=== PATIENT | female | born 1950 | race Caucasian/White ===

== ENCOUNTER → 2016-12-01 | Outpatient (CLI) | payer OTHER | LOC: FIMAGING 14:02 | PROVIDERS: ATTEND Obstetrics & Gynecology | DX: Z13.820 Encounter for screening for osteoporosis (principal) ==

== ENCOUNTER → 2017-04-13 | Outpatient (CLI) | payer OTHER | LOC: FIMAGING 07:52 | PROVIDERS: ATTEND Internal Medicine | DX: Z12.31 Encounter for screening mammogram for malignant neoplasm of breast (principal) | CPT/HCPCS: G0202 ==

== ENCOUNTER 2017-07-20 05:38 | Inpatient (IN) | payer OTHER ==
[2017-07-20] MEDS ORDERED: ACETAMINOPHEN 500 MG TAB PO ONE (06:06)
[2017-07-20] MEDS ORDERED: ceFAZolin 2 GM/SWFI 2 GM/20 ML SYR IVP ONE (06:06)
[2017-07-20] MEDS ORDERED: GABAPENTIN 300 MG CAP PO ONE (06:06)
[2017-07-20] MEDS ORDERED: LR 1,000 ML IV ONE (06:07)
[2017-07-20] MEDS ORDERED: LIDOCAINE 1% 2 ML INJ ID PRN (06:07)
[2017-07-20] MEDS ORDERED: BUPIVACAINE 0.25% 30 ML SDV ONE (06:14)
[2017-07-20] MEDS ORDERED: THROMBIN (BOVINE) 5,000 UNIT VIAL TP ONE (06:14)
[2017-07-20] MEDS ORDERED: BACITRACIN 50,000 UNITS/10 ML SYR IRR ONE ×2 (06:15→09:07)
--- NOTE | 2017-07-20 06:35 | PDHPUP ---
History & Physical Update H&P update statement: This history and physical update is based on an assessment of the patient which was completed after admission or registration (within 24 hours), but prior to the surgery/procedure. H&P update: H&P reviewed & patient examined, no change in patient's condition since H&P completed
[2017-07-20] MEDS ORDERED: MIDAZOLAM 2 MG/2 ML VIAL IVP ONE (06:51)
--- NOTE | 2017-07-20 06:51 | PDANEPAE ---
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 HYPERLIPIDEMIA. INFLAMATORY OSTEOARTHRITIS - Pulmonary History Hx COPD: No Hx Asthma/Reactive Airway Disease: No Hx Recent Upper Respiratory Infection: No Hx Sleep Apnea: Yes Sleep Apnea Screening Result - Last Documented: Positive Pulmonary History Comment: MARTHA, CPAP - Neurologic History Hx Cerebrovascular Accident: No Hx Seizures: No Hx Dementia: No - Endocrine History Hx Diabetes: No Hypothyroid: No Hyperthyroid: No Obesity: no - Renal History Hx Renal Disorders: No Renal History Comment: MILD STRESS INCONTINENCE - Liver History Hx Hepatic Disorders: No - Neurological & Psychiatric Hx Hx Neurological and Psychiatric Disorders: No - Cancer History Hx Cancer: No - Congenital Disorder History Hx Congenital Disorders: No - GI History GERD: no Hx Gastrointestinal Disorders: No Gastrointestinal History Comment: HEMRRHOIDS - Other Health History Other Health History: OSTEOARTHRITIS - Chronic Pain History Chronic Pain: Yes (L KNEE PAIN) - Surgical History Prior Surgeries: 2014 ARTHROSCOPY L KNEE. HEMRRHOIDECTOMY. MENISCECTOMY R KNEE. BILAT BUNIONECTOMY. FACELIFT ANE Review of Systems Review of systems is: negative Review of Systems: - Exercise capacity METS (RN): 4 METS ANE Patient History - Allergies Allergies/Adverse Reactions: No Known Allergies Allergy (Verified 05/19/15 11:30) - Home Medications Home medications: home medication list seen and reviewed Home Medications: FEXOFENADINE HCL 180 mg PO DAILY 05/17/15 [Last Taken 07/17/17] Herbals/Supplements -Info Only 1 each PO DAILY 05/17/15 [Last Taken 07/13/17] Hydrochlorothiazide [HCTZ (*)] 25 mg PO DAILY 05/17/15 [Last Taken 07/17/17] Multivitamins [Multivitamin (*)] 1 tab PO DAILY 05/17/15 [Last Taken 07/13/17] Simvastatin [Zocor] 20 mg PO HS 05/17/15 [Last Taken 07/17/17] Aspirin EC [Aspirin EC 81 mg (*)] 81 mg PO DAILY 07/04/17 [Last Taken 07/13/17] Diclofenac Sodium [Voltaren 75 MG (*)] 75 mg PO BID 07/06/17 [Last Taken ] - NPO status NPO Since - Liquids (Date): 07/19/17 NPO Since - Liquids (Time): 20:00 NPO Since - Solids (Date): 07/19/17 NPO Since - Solids (Time): 20:00 - Anes Hx Anes Hx: no prior problems - Smoking Hx Smoking Status: Former smoker - Family Anes Hx Family Hx Anesthesia Complications: NONE ANE Labs/Vital Signs - Vital Signs Blood Pressure: 137/93 Heart Rate: 80 Respiratory Rate: 18 O2 Sat (%): 95 Height: 165.1 cm Weight: 74.843 kg ANE Physical Exam - Airway Neck exam: FROM Mallampati Score: Class 1 Mouth exam: normal dental/mouth exam - Pulmonary Pulmonary: no respiratory distress - Cardiovascular Cardiovascular: regular rate and rhythym - ASA Status ASA Status: III ANE Anesthesia Plan Anesthesia Plan: general endotracheal anesthesia
[2017-07-20] MEDS ORDERED: REMIFENTANIL HCL 1 MG VIAL ONE ×2 (06:57→09:13)
[2017-07-20] MEDS ORDERED: fentaNYL 100 MCG/2 ML INJ ONE (06:57)
[2017-07-20] MEDS ORDERED: LIDOCAINE 2% 5 ML SDV ONE (06:57)
[2017-07-20] MEDS ORDERED: PROPOFOL/EMULSION 500 MG/50 ML BOTTLE IV ONE (06:57)
[2017-07-20] MEDS ORDERED: ONDANSETRON 4 MG/2 ML VIAL ONE (06:57)
[2017-07-20] MEDS ORDERED: DEXAMETHASONE 4 MG/ML VIAL ONE (06:58)
[2017-07-20] MEDS ORDERED: ROCURONIUM 50 MG/5 ML VIAL ONE (06:58)
[2017-07-20] MEDS ORDERED: PROPOFOL 200 MG/20 ML VIAL ONE ×3 (07:02→09:11)
[2017-07-20] MEDS ORDERED: MIDAZOLAM 2 MG/2 ML VIAL ONE (07:04)
[2017-07-20] MEDS ORDERED: morphINE PCA 30 MG/30 ML PCA IV PRN (07:23)
[2017-07-20] MEDS ORDERED: MAGNESIUM HYDROXIDE 30 ML UDCUP PO PRN (07:23)
[2017-07-20] MEDS ORDERED: NALOXONE HCL 0.4 MG/ML INJ IVP PRN ×3 (07:23→10:03)
[2017-07-20] MEDS ORDERED: ONDANSETRON 4 MG/2 ML VIAL IVP PRN ×2 (07:23→10:03)
[2017-07-20] MEDS ORDERED: ONDANSETRON DISINTEGRATING 4 MG TAB PO PRN (07:23)
[2017-07-20] MEDS ORDERED: POLYETHYLENE GLYCOL 3350 17 GM PKT PO PRN (07:23)
[2017-07-20] MEDS ORDERED: BISACODYL 10 MG SUPP PR PRN (07:23)
[2017-07-20] MEDS ORDERED: LACTULOSE 20 GM/30 ML UDCUP PO PRN (07:23)
[2017-07-20] MEDS ORDERED: HYDROmorphONE/DILAUDID 1 MG/ML INJ IVP PRN ×2 (07:23→10:03)
[2017-07-20] MEDS ORDERED: HYDROCODONE/APAP 5/325 TAB PO PRN ×2 (07:23→10:03)
[2017-07-20] MEDS ORDERED: NS W/ 20 KCl/L 1,000 ML IV SCH (07:30)
[2017-07-20] MEDS ORDERED: HYDROmorphONE/DILAUDID 2 MG/ML INJ ONE (08:06)
[2017-07-20] MEDS ORDERED: HYDROmorphone HCL/NS/PF 0.4 MG/2 ML SYR IVP PRN (08:10)
[2017-07-20] MEDS ORDERED: NON-FORMULARY NEW DRUG (Fexofenadine Hcl [Fexofenadine Hcl] 180 MG) PO SCH (09:00)
[2017-07-20] MEDS ORDERED: epHEDrine SULFATE 10 MG/ML SYR IVP PRN (10:03)
[2017-07-20] MEDS ORDERED: ALBUTEROL 3 ML DEYVIAL IH PRN (10:03)
[2017-07-20] MEDS ORDERED: OXYCODONE/APAP 5/325 TAB PO PRN (10:03)
[2017-07-20] MEDS ORDERED: fentaNYL 100 MCG/2 ML INJ IVP PRN (10:03)
[2017-07-20] MEDS ORDERED: PHENYLEPHRINE HCL 100 MCG/ML SYR IVP PRN (10:03)
[2017-07-20] MEDS ORDERED: PROMETHAZINE HCL 25 MG/ML INJ IVP PRN (10:03)
[2017-07-20] MEDS ORDERED: METOCLOPRAMIDE 10 MG/2 ML VIAL IVP PRN (10:03)
[2017-07-20] MEDS ORDERED: LR 500 ML IV PRN (10:03)
[2017-07-20] MEDS ORDERED: ACETAMINOPHEN 500 MG TAB PO PRN (10:03)
--- NOTE | 2017-07-20 10:36 | POSTANESTH ---
Post Anesthetic Evaluation Cardiovascular Status: Normal, Stable Respiratory Status: Normal, Stable Level of Consciousness/Mental Status: Can Participate in Eval Pain Control: Adequate, Prn Tx Ordered Nausea/Vomiting Control: Adequate, Prn Tx Ordered Complications Possibly Related to Anesthesia: None Noted
--- NOTE | 2017-07-20 10:46 | SOAPPROG ---
SOAP Progress Note Assessment/Plan: Post Op Visit: S: Awake and alert. Pt with expected neck pain O: AFVSS/PERRLA/EOMI no droop CN 2-12 grossly intact +lt touch 5/5 BUE/BLE = CDI neck soft and supple A/P: 66 yo female that is s/p ACDF C3-C5 -orders in place -call with any questions or concerns -take medications as directed -pt fit for a collar already 07/20/17 10:42 Objective: Vital Signs Temp Pulse Resp BP Pulse Ox 36.2 C 80 15 144/92 H 98 07/20/17 10:26 07/20/17 06:51 07/20/17 10:35 07/20/17 10:35 07/20/17 10:35 ICD10 Worksheet Patient Problems: Problems Problem Status Onset Arthrodesis status Acute Cervical stenosis of spine Acute Primary localized osteoarthritis of left knee Acute - ICD10 Problem Qualifiers (1) Cervical stenosis of spine (2) Arthrodesis status
--- NOTE | 2017-07-20 11:03 | GOP ---
[f rep st] OPERATIVE REPORT DATE OF OPERATION: 07/20/2017 SURGEON: Brooke Cordoba MD NEUROSURGEON: Brooke Cordoba MD. ACCESS LEAD: Bhanu Schrader PA-C. PREOPERATIVE DIAGNOSIS: Cervical spondylosis, cervical stenosis, cervical radiculopathy, left upper extremity weakness. POSTOPERATIVE DIAGNOSIS: Cervical spondylosis, cervical stenosis, cervical radiculopathy, left upper extremity weakness. PROCEDURE PERFORMED: Anterior cervical diskectomy with arthrodesis and decompression, C3-4, C4-5 (03 [id number], 48892), placement of kanu allograft structural intervertebral device C3-4, C4-5, same incision bone graft harvest, microscope, fluoroscopy, anterior cervical instrumentation C3, C4, C5 ([id number]). FINDINGS: ESTIMATED BLOOD LOSS: 150 cc. INDICATIONS: The patient is a 66-year-old who had left upper extremity weakness that was persistent and a left cervical radiculopathy, who had an MRI of the cervical spine demonstrating cervical stenos is that was severe at C4-5 and bilateral foraminal stenosis at C3-4, C4-5. There were no significant compressive lesions noted at C5-6, C6-7, C7-T1. She had proximal arm weakness most consistent with an upper cervical root compressive deformity. I suggested a 2-level anterior cervical diskectomy and fusion. The risks of adjacent segment disease, nerve injury, dysphagia, esophageal injury, hoarsene ss, pseudoarthrosis, and the possible need for future spine surgery were discussed. She also underst ood there was a chance that surgery would fail to eliminate her weakness. She wanted to proceed desp ite these risks. She also had a lumbar spondylolisthesis, but had minimal symptoms from this, and we were not going to address this at this time. DESCRIPTION OF PROCEDURE: Patient was taken to the operating room and placed in a supine position. General anesthesia was begun. She was intubated, carefully placed on the operating room table. A mi ddle shoulder roll was placed. The head and neck were put in the neutral position with the occiput e xtended. She was sterilely prepped and draped in the usual fashion. We made a transverse incision o n the right side of the neck after infiltrating the skin and subcutaneous tissue with 0.25% Marcaine with epinephrine. The subcutaneous tissue was dissected using Bovie cautery through platysma, and we used a combination of sharp and blunt dissection to work our way medial to the sternocleidomastoid a nd lateral to the strap muscles down to the prevertebral space. The dissection was straightforward. No nerves or vessels were divided in this process. A localizing x-ray was taken. We then dissected the longus coli muscles off the spine at C3-4, C4-5, and removed the ventral osteop hytes at C3-4, 4-5. We then placed distraction pins at C4-5 and under the operating microscope, we i ncised the C4-5 disk. We removed the disk and the cartilaginous endplates. We drilled and harvested a large amount of subchondral bone for autologous grafting purposes. We then opened the posterior a nd longitudinal ligament, decompressed the thecal sac and the neural foramina bilaterally, and decomp ressed both C5 nerve roots at this level. There was some epidural bleeding, but it was not very geovanny re. It was easily controlled with a small piece of Gelfoam. We chose a 6 x 14 x 14 cortical block m anufactured by the [employer], and we shaved off the posterior margin of this block to ensure that it fit in the disk space and then enlarged the central hole so the bony autograft could be place d in this. We normally would use a very large hollow piece of PEEK, but the insurance company reject ed this as experimental and we were not allowed to do the surgery in our typical fashion. We therefo re modified the bony allograft to allow us to use bony autograft inside the allograft, and we did thi s at both levels. We inserted our implant at C4-5, moved the distraction pin to C3-4, distracted at this level and did likewise. We incised the C3-4 disk, removed the cartilaginous endplates, drilled and harvested subch ondral bone for autologous grafting purposes. We opened the posterior and longitudinal ligament, dec ompressed the thecal sac and the neural foramina bilaterally at C3-4. Our decompression at C3-4 was slightly less wide than at C4-5, but we were able to see the exiting C4 nerve roots. There was a lot of epidural venous bleeding from the left-sided neural foramen at C3-4 as we decompressed it and thi s accounted for most of the blood loss during the surgery, but it was easily controlled with a small piece of Gelfoam. We then chose another 6 x 14 x 14 mm cortical block, treated it the same way as we had done at C4-5, placed bone autograft into it, inserted at C4-5, and removed our distraction pins. We then prepared the ventral surface of the vertebral body for acceptance of the plate and chose a 37 mm plate, and a single screw was placed at C3, a single screw at C5. We checked an x-ray to confirm the position of the implants and the plate itself. We then replaced the remaining 4 screws for a to isabella of 6 screws, and they were all locked according to company specification. This was verified with the staff in the room. We then irrigated with antibiotic saline solution, achieved meticulous hemos tasis, and checked a final x-ray. We then placed some 0.25% Marcaine with epinephrine into the preve rtebral space and then closed the platysma with interrupted Vicryl sutures. The skin was closed with interrupted Vicryl sutures. Steri-Strips were applied. The patient was reversed from anesthesia, e xtubated, and transferred to recovery room in stable condition. There were no complications. COMPLICATIONS: None. INSTRUMENTATION USED: [employer] Zevo 37 mm plate with a 6 x 14 x 14 cortical block at both levels. /[id number]/MODL
[2017-07-20] MEDS: HYDROCHLOROTHIAZIDE 25 MG TAB PO SCH (11:39)
[2017-07-20] MEDS: FAMOTIDINE 20 MG TAB PO SCH ×2 (11:39→20:55)
[2017-07-20] MEDS: CETIRIZINE 10 MG TAB PO SCH (11:39)
[2017-07-20] MEDS: SENNOSIDES/DOCUSATE SODIUM TAB PO SCH ×2 (11:40→20:56)
[2017-07-20] MEDS: GABAPENTIN 300 MG CAP PO SCH ×2 (13:05→20:54)
[2017-07-20] MEDS: ACETAMINOPHEN 500 MG TAB PO SCH ×2 (13:05→20:55)
[2017-07-20] MEDS: ceFAZolin 2 GM/DEXTROSE 100 ML IV SCH ×2 (15:38→21:05)
[2017-07-20] MEDS: oxyCODONE IR 5 MG TAB PO PRN (20:53)
[2017-07-20] MEDS: ATORVASTATIN CALCIUM 10 MG TAB PO SCH (20:56)
[2017-07-20] MEDS ORDERED: NON-FORMULARY NEW DRUG (Simvastatin [Zocor] 20 MG) PO SCH (21:00)
[2017-07-21] MEDS: oxyCODONE IR 5 MG TAB PO PRN ×5 (04:31→19:30)
[2017-07-21] MEDS: GABAPENTIN 300 MG CAP PO SCH ×3 (05:45→21:24)
[2017-07-21] MEDS: ACETAMINOPHEN 500 MG TAB PO SCH ×3 (05:46→21:24)
--- NOTE | 2017-07-21 07:40 | NEUSURGPN ---
Date of Surgery: 07/20/17 Post Op Day: 1 Assessment/Plan: Assessment: 66 yo female that is s/p ACDF C3-C5 POD #1 Plan: -s/p ACDF C3-5-pt with expected neck pain, excellent strength to BUE -pt with some pain control issues-will work on this today -PT/OT/ST ordered -pt with neck pain, arms feel fine -collar at all times -orders in place -call with any questions or concerns -take medications as directed -pt seen by Dr Cordoba 07/20/17 10:42 Subjective: Awake and alert. NAD. Eating/drinking and voiding. No f/c/n/v/d. No haines/cp/ sob/abd or gu complaints. Objective: AFVSS/PERRLA/EOMI no droop CN 2-12 grossly intact +lt touch 5/5 BUE/BLE = CDI neck soft and supple Neuro Check Frequency: per routine Urinary Catheter in Place: No - Physician Discussed Patient with DrDarling: Adalid Patient Seen by : Adalid Neurosurgery Physical Exam - Vitals, I&O, Labs I and O 07/20/17 07/21/17 07/22/17 05:59 05:59 05:59 Intake Total 1710 Output Total 500 Balance 1210 Weight 74.843 kg Intake: Oral (ml) 1710 Output: Urine (ml) 500 Toilet 500 Other: Intake Quantity Yes Sufficient Number of Voids Toilet 1 Vital Signs Temp Pulse Resp BP Pulse Ox 37.1 C 74 17 120/78 96 07/21/17 04:00 07/21/17 04:00 07/21/17 04:00 07/21/17 04:00 07/21/17 04:00 ICD10 Worksheet Patient Problems: Problems Problem Status Onset Arthrodesis status Acute Cervical stenosis of spine Acute Primary localized osteoarthritis of left knee Acute - ICD10 Problem Qualifiers (1) Cervical stenosis of spine (2) Arthrodesis status
[2017-07-21] MEDS: FAMOTIDINE 20 MG TAB PO SCH ×2 (09:26→21:24)
[2017-07-21] MEDS: HYDROCHLOROTHIAZIDE 25 MG TAB PO SCH (09:27)
[2017-07-21] MEDS: SENNOSIDES/DOCUSATE SODIUM TAB PO SCH ×2 (09:28→21:24)
[2017-07-21] MEDS: CETIRIZINE 10 MG TAB PO SCH (09:29)
--- NOTE | 2017-07-21 10:00 | ASMTCMCOM ---
CM Note CM Note Notes: Chart reviewed. Pt is POD #1, s/p ACDF C3-5. She lives at home w/. PT/OT/SP recommendations pending. CM w/f to see if there will be dc needs. Date Signed: 07/21/2017 09:59 AM Electronically Signed By:Hortencia Wynne RN
[2017-07-21] MEDS: ATORVASTATIN CALCIUM 10 MG TAB PO SCH (21:24)
[2017-07-21] MEDS: METHOCARBAMOL 750 MG TAB PO PRN (21:40)
[2017-07-22] MEDS: oxyCODONE IR 5 MG TAB PO PRN ×4 (00:55→12:02)
[2017-07-22] MEDS: METHOCARBAMOL 750 MG TAB PO PRN (04:39)
[2017-07-22] MEDS: ACETAMINOPHEN 500 MG TAB PO SCH (05:51)
[2017-07-22] MEDS: GABAPENTIN 300 MG CAP PO SCH (05:52)
--- NOTE | 2017-07-22 07:41 | SOAPPROG ---
SOAP Progress Note Assessment/Plan: Assessment: 66 yo female POD #1 sp C3-5 ACDF improved left deltoid strength after surgery swallowing wel Plan: PT/OT/ST today DC home today with hard collar use during day and soft collar to use at night while on CPAP 07/22/17 07:38 Subjective: awake, alert, feeling good. Very happy that her left arm strength has improved swallowing "fine" Denies new numbness, tingling or weakness Objective: Vital Signs Temp Pulse Resp BP Pulse Ox 36.7 C 77 18 117/78 97 07/22/17 04:00 07/22/17 04:00 07/22/17 04:00 07/22/17 04:00 07/22/17 04:00 07/21/17 07/22/17 07/23/17 05:59 05:59 05:59 Intake Total 1710 700 Output Total 500 450 Balance 1210 250 Neuro: BAHENA, sens +LT 5/5 left Deltoid and throughout all ext Incision: dressing is CDI No AI Post op xrays show stable hardware/grafts ICD10 Worksheet Patient Problems: Problems Problem Status Onset Arthrodesis status Acute Cervical stenosis of spine Acute Primary localized osteoarthritis of left knee Acute
[2017-07-22 07:50] VITALS: BP 104/65; PULSE 78; RESP 15; TEMP 98.9; O2SAT 96
[2017-07-22] MEDS: CETIRIZINE 10 MG TAB PO SCH (08:49)
[2017-07-22] MEDS: SENNOSIDES/DOCUSATE SODIUM TAB PO SCH (08:49)
[2017-07-22] MEDS: FAMOTIDINE 20 MG TAB PO SCH (08:50)
[2017-07-22] MEDS: HYDROCHLOROTHIAZIDE 25 MG TAB PO SCH (10:26)
--- NOTE | 2017-07-22 10:40 | ASMTCMCOM ---
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 Pt medically stable for d/c. No CM d/c needs identified. Date Signed: 07/22/2017 10:40 AM Electronically Signed By:GIANLUCA Corona
--- NOTE | 2017-07-22 14:50 | ASDISCHSUM ---
Discharge Information Plan Status:Home with No Needs Medically Cleared to Leave: Discharge Date:07/22/2017 12:06 PM CM D/C Disposition:Home, Routine, Self-Care ADT D/C Disposition:Home, Routine, Self-Care Projected Discharge Date:07/22/2017 12:06 PM Transportation at D/C: Discharge Delay Reason: Follow-Up Date:07/22/2017 12:06 PM Discharge Slot: Final Diagnosis: Placement Information Patient Contact Information Contact Name:LETHA Relationship: Address:[address] City:[place] Alternate Phone: [facility]/Zip Code:[place] [address] Email: Financial Information Financial Class:HMO and PPO Plans Primary Plan Desc:[employer] PPO POS Primary Plan Number:[id number] Secondary Plan Desc: Secondary Plan Number: Assessment Information [facility] CM Progress Note CM Note CM Note Notes: Chart reviewed. Pt is POD #1, s/p ACDF C3-5. She lives at home w/. PT/OT/SP recommendations pending. CM w/f to see if there will be dc needs. 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 Pt medically stable for d/c. No CM d/c needs identified. Date Signed: 07/22/2017 10:40 AM Electronically Signed By:GIANLUCA Corona Intervention Information Intervention Type:*Incorrect Registration Date of Service:07/20/2017 04:42 PM Patient Type:Observation Staff Member:NANO Lockett, Ann Hours: Discipline: Severity: Comment:
[2017-07-23] MEDS ORDERED: ENOXAPARIN 40 MG/0.4 ML SYR SC SCH (09:00)
== END 2017-07-22 12:06 | disposition home or self-care (01) | DRG 473 ==
LOC: F3N 05:38 → OBSVTOIN 05:38 → EDSTATUS 07:30 → F3N 11:16
PROVIDERS: ADMIT Neurological Surgery; ATTEND Neurological Surgery
DX: M47.22 Other spondylosis with radiculopathy, cervical region (principal); M48.02 Spinal stenosis, cervical region; M43.12 Spondylolisthesis, cervical region; I10 Essential (primary) hypertension; E78.5 Hyperlipidemia, unspecified; G47.33 Obstructive sleep apnea (adult) (pediatric); Z87.891 Personal history of nicotine dependence; Z96.652 Presence of left artificial knee joint
CPT/HCPCS: 92526-GN; 92610-GN; 97161-GP; 97165-GO; 97535-GO; C1713; J0171; J0690; J1100; J1170; J2250; J2370; J2405; J2704; J3010

== ENCOUNTER → 2017-09-09 | Outpatient (CLI) | payer OTHER | LOC: FIMAGING 09:06 | PROVIDERS: ATTEND Physician Assistant | DX: Z09 Encounter for follow-up examination after completed treatment for conditions other than malignant neoplasm (principal); Z98.1 Arthrodesis status; M50.323 Other cervical disc degeneration at C6-C7 level; M43.12 Spondylolisthesis, cervical region ==

== ENCOUNTER → 2017-09-15 | Outpatient (CLI) | payer OTHER | PROVIDERS: ATTEND Otolaryngology | DX: R13.10 Dysphagia, unspecified (principal); K22.4 Dyskinesia of esophagus; K44.9 Diaphragmatic hernia without obstruction or gangrene; Z98.1 Arthrodesis status | CPT/HCPCS: 92611-GN ==

== ENCOUNTER → 2017-12-07 | Outpatient (CLI) | payer OTHER | LOC: FIMAGING 09:50 | PROVIDERS: ATTEND Physician Assistant | DX: Z09 Encounter for follow-up examination after completed treatment for conditions other than malignant neoplasm (principal); Z98.1 Arthrodesis status; M50.30 Other cervical disc degeneration, unspecified cervical region; M79.9 Soft tissue disorder, unspecified ==

== ENCOUNTER → 2018-01-31 | Outpatient (CLI) | payer OTHER | PROVIDERS: ATTEND Otolaryngology | DX: R13.10 Dysphagia, unspecified (principal); R09.89 Other specified symptoms and signs involving the circulatory and respiratory systems; K21.9 Gastro-esophageal reflux disease without esophagitis; Z98.1 Arthrodesis status | CPT/HCPCS: 92611-GN ==

== ENCOUNTER → 2018-04-18 | Outpatient (CLI) | payer OTHER | LOC: FIMAGING 07:34 | PROVIDERS: ATTEND Internal Medicine | DX: Z12.31 Encounter for screening mammogram for malignant neoplasm of breast (principal) ==

== ENCOUNTER → 2018-06-26 | Outpatient (CLI) | payer OTHER | LOC: FIMAGING 10:39 | PROVIDERS: ATTEND Physician Assistant | DX: M43.12 Spondylolisthesis, cervical region (principal); M53.82 Other specified dorsopathies, cervical region; M50.323 Other cervical disc degeneration at C6-C7 level ==